=== PATIENT | male | born 1950 | race Caucasian/White ===

== ENCOUNTER 2017-07-28 09:09 | Emergency (ER) | payer MEDICARE, MEDICAID ==
[~2017-07-28] VITALS: Ht 180.3 cm; Wt 91.0 kg
[~2017-07-28 09:09] MED LIST: INDO50CA PO; LISI-515 PO
[2017-07-28 09:15] VITALS: BP 175/93; PULSE 60; RESP 16; TEMP 98.2; O2SAT 97
--- NOTE | 2017-07-28 09:41 | PD ---
HPI Chief Complaint: Cold / Flu Symptoms Time Seen by Provider: 09:32 Travel History International Travel<30 days: Yes Contact w/Intl Traveler<30days: Yes Name of Country Traveled to: [facility] Traveled to known affect area: No History of Present Illness HPI 66-year-old male with history of hypertension presents for evaluation. The patient recently went on a cruise to [facility]. While on the cruise 8 days ago he developed cough, congestion, tickle in the throat, chills. The cough is dry, unrelieved with [id number] TheraFlu. Symptoms have persisted which prompted evaluation. Denies sick contacts. He has not checked his temperature at home. He has no other complaints at this time. [facility] Past Medical History Diminished Hearing: No Gout: Yes Hypertension: Yes Tetanus Vaccination: Unknown Social History Alcohol Use: Yes (beer "a few times a week"; 4 beers 12/29/15) Tobacco Use: No Substance Use: No Allergies-Medications (Allergen,Severity, Reaction): Coded Allergies: No Known Allergies (Verified Adverse Reaction, Unknown, 07/28/17) Reported Meds & Prescriptions Reported Meds & Active Scripts Active Prednisone 20 Mg Tab 20 Mg PO BID 5 Days Tessalon Perles (Benzonatate) 100 Mg Cap 200 Mg PO TID PRN Proair Hfa 8.5 GM Inh (Albuterol Sulfate) 90 Mcg/Act Aer 2 Puff INH Q4-6H PRN 108 mcg/actuation Lisinopril 20 Mg Tab 20 Mg PO DAILY Indomethacin 50 Mg Cap 50 Mg PO TID Take with food, milk, or antacids to decrease stomach adverse effects. Stop taking once symptoms improve. Review of Systems Except as stated in HPI: all other systems reviewed are Neg Physical Exam Narrative GENERAL: Well-developed well-nourished male in no acute distress SKIN: Warm and dry. HEAD: Atraumatic. Normocephalic. EYES: Pupils equal and round. No scleral icterus. No injection or drainage. ENT: No nasal bleeding or discharge. Mucous membranes pink and moist. NECK: Trachea midline. No JVD. CARDIOVASCULAR: Regular rate and rhythm. No murmur appreciated. RESPIRATORY: No accessory muscle use. Mild inspiratory and expiratory wheezing bilaterally. GASTROINTESTINAL: Abdomen soft, non-tender, nondistended. Hepatic and splenic margins not palpable. MUSCULOSKELETAL: No obvious deformities. No clubbing. No cyanosis. No edema. NEUROLOGICAL: Awake and alert. No obvious cranial nerve deficits. Motor grossly within normal limits. Normal speech. PSYCHIATRIC: Appropriate mood and affect; insight and judgment normal. Data Data Last Documented VS Vital Signs Date Time Temp Pulse Resp B/P (MAP) Pulse Ox O2 Delivery O2 Flow Rate FiO2 07/28/17 09:15 98.2 60 16 175/93 (120) 97 Orders Orders Influenzae A/B Antigen (07/28/17 09:32) Chest, Single Ap (07/28/17 09:37) Albuterol-Ipratropium Neb (Duoneb Neb) (07/28/17 09:45) Ed Discharge Order (07/28/17 10:47) [facility] Medical Decision Making Medical Screen Exam Complete: Yes Emergency Medical Condition: Yes Medical Record Reviewed: Yes Differential Diagnosis Influenza, bronchitis, pneumonia, reactive airway disease, sinusitis Narrative Course 66-year-old male presents with 3 days of cough, congestion, chills. On examination he has a dry cough, mild wheezing bilaterally. Plan is for influenza antigen, chest x-ray. He will be given DuoNeb treatment. Chest x-ray is normal. Influenza antigen negative. He feels improved after DuoNeb treatment. He will be discharged with prescriptions for prednisone, Tessalon, albuterol inhaler. Diagnosis Primary Impression: Bronchitis Additional Instructions: Medication as prescribed. Stay well hydrated and well-nourished. Follow-up with primary care physician and return for any acutely new or worsening symptoms. Med/Other Pt SpecificInfo: Prescription(s) given Scripts Prednisone (Prednisone) 20 Mg Tab 20 MG PO BID for 5 Days, #10 TAB 0 Refills Prov: Clarissa Gaspar MD 07/28/17 Benzonatate (Tessalon Perles) 100 Mg Cap 200 MG PO TID Y for COUGH, #30 CAP 0 Refills Prov: Clarissa Gaspar MD 07/28/17 Albuterol 8.5 GM Inh (Proair Hfa 8.5 GM Inh) 90 Mcg/Act Aer 2 PUFF INH Q4-6H Y for SHORTNESS OF BREATH, #1 INHALER 0 Refills 108 mcg/actuation Prov: Clarissa Gaspar MD 07/28/17 Disposition: 01 DISCHARGE HOME Condition: Stable Akhil,Roman P. PA Jul 28, 2017 09:40
[2017-07-28] MEDS: RESP: ALBUTEROL 2.5 MG/IPRATROPIUM 0.5 MG NEB (SCH) INH (09:45)
--- NOTE | 2017-07-28 10:30 | RADRPT ---
EXAM DATE/TIME: 07/28/2017 10:09 [facility] COMPARISON: No previous studies available for comparison. INDICATIONS : Cough, chest pain, short of breath. MEDICAL HISTORY : Hypertension. SURGICAL HISTORY : None. ENCOUNTER: Initial ACUITY: 1 week PAIN SCORE: 110 LOCATION: Bilateral chest FINDINGS: A single view of the chest demonstrates the lungs to be symmetrically aerated without evidence of mas s, infiltrate or effusion. The cardiomediastinal contours are unremarkable. Osseous structures are intact. CONCLUSION: 1. No acute cardiopulmonary disease. Joel Keller MD on July 28, 2017 at 10:24 Board Certified Radiologist. This report was verified electronically.
[2017-07-28] MEDS ORDERED: BENZ100 PO (10:47)
[2017-07-28] MEDS ORDERED: PRED20 PO (10:47)
[2017-07-28] MEDS ORDERED: ALBUAER3 INH (10:47)
== END 2017-07-28 10:57 | disposition home or self-care (01) ==
LOC: PHEFT 09:09
DX: J40 Bronchitis, not specified as acute or chronic (principal); I10 Essential (primary) hypertension; M10.9 Gout, unspecified
CPT/HCPCS: 71045; 87804; 94640; 94664; 99284

== ENCOUNTER 2017-11-14 11:20 | Emergency (ER) | END 2017-11-14 17:31 | disposition home or self-care (01) | DX: M13.861 Other specified arthritis, right knee (principal); M25.461 Effusion, right knee; R50.9 Fever, unspecified; I10 Essential (primary) hypertension; Z87.39 Personal history of other diseases of the musculoskeletal system and connective tissue | CPT/HCPCS: 20610; 80048; 85025; 87040; 87070; 87205; 89051; 89060; 96374; 99284; J2270 ==

== ENCOUNTER 2017-11-17 12:51 | Emergency (ER) | payer MEDICARE, MEDICAID ==
[~2017-11-17] VITALS: Ht 180.3 cm; Wt 92.0 kg
[~2017-11-17 12:51] MED LIST changes: +BP MED PO; -INDO50CA PO; -LISI-515 PO; +PERC5TAB12 PO
[2017-11-17 12:59] VITALS: BP 142/82; PULSE 98; RESP 16; TEMP 99.2; O2SAT 96
[2017-11-17] MEDS ORDERED: BP MED PO (15:17)
[2017-11-17] MEDS ORDERED: oxyCODONE/ACETAMINOPHEN 5 MG/325 MG TAB PO ONE (15:30)
--- NOTE | 2017-11-17 16:17 | RADRPT ---
EXAM DATE/TIME: 11/17/2017 15:28 [facility] COMPARISON: No previous studies available for comparison. INDICATIONS : Right knee pain and sewelling, no known trauma. MEDICAL HISTORY : Gout. SURGICAL HISTORY : None. ENCOUNTER: Initial ACUITY: 1 week PAIN SCORE: 4/10 LOCATION: Right knee. FINDINGS: 4 views of the right knee demonstrates suprapatellar soft tissue fullness suggesting the presence of a moderate effusion. Bony structures are intact. There is no significant arthropathy. CONCLUSION: Moderate joint effusion which may indicate the presence of internal derangement or synovitis. No evidence of acute fracture or significant arthropathy. Daniel Rodriguez MD on November 17, 2017 at 16:14 Board Certified Radiologist. This report was verified electronically.
--- NOTE | 2017-11-17 16:46 | RADRPT ---
EXAM DATE/TIME: 11/17/2017 16:18 [facility] COMPARISON: No previous studies available for comparison. INDICATIONS : Bilateral leg pain. MEDICAL HISTORY : Hypertension. Gout. SURGICAL HISTORY : ENCOUNTER: Initial ACUITY: 3 days PAIN SCORE: 7/10 LOCATION: Bilateral leg. TECHNIQUE: Venous ultrasound of the left and right leg was performed from the inguinal ligament to the proximal calf. Real-time, color Doppler and spectral tracing, compression and augmentation techniques were us ed. FINDINGS: RIGHT LEG: There is normal compressibility of the deep venous system from the inguinal region to the proximal ca lf. No echogenic clot is seen in the lumen of the common femoral, femoral, popliteal, and posterior tibial veins. There is a normal response of the venous system to proximal and distal augmentation an d respiration. LEFT LEG: There is normal compressibility of the deep venous system from the inguinal region to the proximal ca lf. No echogenic clot is seen in the lumen of the common femoral, femoral, popliteal, and posterior tibial veins. There is a normal response of the venous system to proximal and distal augmentation an d respiration. CONCLUSION: 1. No sonographic evidence for lower extremity DVT. Joel Keller MD on November 17, 2017 at 16:44 Board Certified Radiologist. This report was verified electronically.
--- NOTE | 2017-11-17 16:55 | PD ---
HPI Chief Complaint: Pain: Acute or Chronic Time Seen by Provider: 15:10 Travel History International Travel<30 days: No Contact w/Intl Traveler<30days: No Traveled to known affect area: No History of Present Illness HPI The patient 67 years old. He complains of pain in the right knee. It is constant. He states that severe. It is worse with range of motion. He was seen here couple weeks ago when a joint aspiration was performed. Fluid analysis revealed about 2000 WBCs. No crystals were seen. Fluid culture revealed no growth. The patient reports to me that he drove from [place] to here a few days ago and there is a family history of DVT. He states the only real difference between the pain he has today and the last time was in our radiates to the lower extremity/heel and foot on the right side and he also feels some pain in the left foot 2. No shortness of breath. No fever chills. No trauma. PFSH Past Medical History Diminished Hearing: No Gout: Yes Hypertension: Yes Tetanus Vaccination: < 5 Years Influenza Vaccination: Yes Past Surgical History Surgical History: No Previous Surgery Social History Alcohol Use: Yes (beer "a few times a week"; 4 beers 12/29/15) Tobacco Use: No Substance Use: No Allergies-Medications (Allergen,Severity, Reaction): Coded Allergies: No Known Allergies (Verified Adverse Reaction, Unknown, 11/17/17) Reported Meds & Prescriptions Reported Meds & Active Scripts Active Indomethacin 50 Mg Cap 50 Mg PO TID Take with food, milk, or antacids to decrease stomach adverse effects. Stop taking once symptoms improve. Prednisone 20 Mg Tab 20 Mg PO BID 5 Days Percocet (Oxycodone-Acetaminophen) 5-325 mg Tab 1 Tab PO Q6H PRN Reported [Bp Med] 10 Mg PO DAILY Review of Systems Except as stated in HPI: all other systems reviewed are Neg General / Constitutional: No: Fever Physical Exam Narrative GENERAL: 67-year-old male pleasant well-nourished well-developed Vital Signs Date Time Temp Pulse Resp B/P (MAP) Pulse Ox O2 Delivery O2 Flow Rate FiO2 11/17/17 12:59 99.2 98 16 142/82 (102) 96 SKIN: Warm and dry. HEAD: Atraumatic. Normocephalic. EYES: Pupils equal and round. No scleral icterus. No injection or drainage. ENT: No nasal bleeding or discharge. Mucous membranes pink and moist. NECK: Trachea midline. No JVD. CARDIOVASCULAR: Regular rate and rhythm. RESPIRATORY: No accessory muscle use. Clear to auscultation. Breath sounds equal bilaterally. GASTROINTESTINAL: Abdomen soft, non-tender, nondistended. Hepatic and splenic margins not palpable. MUSCULOSKELETAL: Extremities without clubbing, cyanosis, or edema. No obvious deformities. Tenderness to palpation about the left knee overlying the patella is about the lower quadriceps. No erythema. Passive range of motion is somewhat limited due to pain NEUROLOGICAL: Awake and alert. No obvious cranial nerve deficits. Motor grossly within normal limits. Five out of 5 muscle strength in the arms and legs. Normal speech. PSYCHIATRIC: Appropriate mood and affect; insight and judgment normal. Data Data Last Documented VS Vital Signs Date Time Temp Pulse Resp B/P (MAP) Pulse Ox O2 Delivery O2 Flow Rate FiO2 11/17/17 12:59 99.2 98 16 142/82 (102) 96 Orders Orders Oxycodone-Acetamin 5-325 Mg (Percocet (11/17/17 15:30) Us Leg Venous Doppler Bilat (11/17/17 ) Knee, Complete (4vws) (11/17/17 ) Ed Discharge Order (11/17/17 17:06) MDM Medical Decision Making Medical Screen Exam Complete: Yes Emergency Medical Condition: Yes Medical Record Reviewed: Yes Differential Diagnosis Septic arthritis, inflammatory arthritis, DVT Narrative Course Last Impressions Knee X-Ray 11/17/17 0000 Signed Impressions: Service Date/Time: Friday, November 17, 2017 15:28 - CONCLUSION: Moderate joint effusion which may indicate the presence of internal derangement or synovitis. No evidence of acute fracture or significant arthropathy. Daniel Rodriguez MD There is no evidence of DVT We can see the plain film reveals joint effusion concerning for internal derangement of the knee or potentially inflammation of the synovium. The patient refused arthrocentesis here which would have been therapeutic intervention. Review of up-to-date and sided literature shows that on rare occasion we can have gout without urate crystals and although it is unlikely the patient reports in the past modifying his diet and following the treatments for gout work so we will provide him with some indomethacin and prednisone. Diagnosis Primary Impression: Knee effusion, right Referrals: Albaro Covington MD call for appointment Med/Other Pt SpecificInfo: Prescription(s) given Scripts Indomethacin (Indomethacin) 50 Mg Cap 50 MG PO TID, #30 CAP 1 Refill Take with food, milk, or antacids to decrease stomach adverse effects. Stop taking once symptoms improve. Prov: Garrett Thurston MD 11/17/17 Prednisone (Prednisone) 20 Mg Tab 20 MG PO BID for 5 Days, #10 TAB 0 Refills Prov: Garrett Thurston MD 11/17/17 Oxycodone-Acetaminophen (Percocet) 5-325 mg Tab 1 TAB PO Q6H Y for PAIN, #12 TAB 0 Refills Prov: Garrett Thurston MD 11/17/17 Disposition: 01 DISCHARGE HOME Condition: Stable Garrett Thurston MD November 17, 2017 16:55
[2017-11-17] MEDS ORDERED: PRED20 PO (17:05)
[2017-11-17] MEDS ORDERED: PERC5TAB12 PO (17:05)
[2017-11-17] MEDS ORDERED: INDO50CA PO (17:05)
[2017-11-17 17:22] VITALS: RESP 18
[2017-11-17 17:24] VITALS: BP 125/72
== END 2017-11-17 17:24 | disposition home or self-care (01) ==
LOC: PHED 12:51
DX: M25.461 Effusion, right knee (principal); M79.604 Pain in right leg; M79.672 Pain in left foot; M10.9 Gout, unspecified; I10 Essential (primary) hypertension
CPT/HCPCS: 73564; 93970; 99284